=== PATIENT | female | born 1985 | race Caucasian/White ===

== ENCOUNTER 2016-06-24 13:51 | Emergency (ER) | payer BC ==
[2016-06-24 15:31] VITALS: RESP 18; O2SAT 99
[2016-06-24] MEDS ORDERED: Sodium Chloride 0.9% 1,000 ML IV ONE (15:40)
[2016-06-24] MEDS ORDERED: Sodium Chloride 0.9% 1,000 ML ONE (16:00)
[2016-06-24 16:08] LABS: BASO # 0.1 K/uL (0.0-0.2); EOS % 0.4 % (0.0-4.0); HEMATOCRIT 32.3 % (34.0-47.0); LYMPH # 2.1 K/uL (1.0-4.3); LYMPH % 34.6 % (20.0-40.0); MEAN CELL VOLUME 69.3 fL (81.0-99.0); MEAN CORPUSCULAR HEMOGLOBIN 20.9 pg (27.0-31.0); MEAN CORPUSCULAR HGB CONC 30.1 g/dL (33.0-37.0); MONO # 0.6 K/uL (0.0-0.8); MONO % 9.1 % (0.0-10.0); RED CELL DISTRIBUTION WIDTH 16.5 % (11.5-14.5); WHITE BLOOD COUNT 6.2 K/uL (4.8-10.8)
[2016-06-24 16:15] LABS: RBC URINE < 1 /hpf (0-3); URINE BACTERIA RARE (<OCC); URINE BILIRUBIN NEGATIVE (NEGATIVE); URINE BLOOD NEGATIVE (NEGATIVE); URINE COLOR Yellow (YELLOW); URINE GLUCOSE (UA) NORMAL (Normal); URINE KETONE NEGATIVE (NEGATIVE); URINE PROTEIN NEGATIVE (NEGATIVE); URINE UROBILINOGEN NORMAL mg/dL (0.2-1.0); WBC URINE 3 /hpf (0-5)
[2016-06-24 16:18] LABS: URINE LEUKOCYTE ESTERASE TRACE Leu/uL (Negative)
[2016-06-24 16:20] LABS: CHLORIDE 98 mmol/L (98-107); SODIUM 138 mmol/L (132-148)
[2016-06-24 16:21] LABS: POTASSIUM 3.9 mmol/L (3.6-5.2)
[2016-06-24 16:22] LABS: GFR AFRICAN-AMERICAN > 60
[2016-06-24 16:23] LABS: ALB/GLOB RATIO 1.3 (1.0-2.1); ALKALINE PHOSPHATASE 73 U/L (38-126); ALT/SGPT 16 U/L (9-52); AST/SGOT 20 U/L (14-36); BILIRUBIN,TOTAL 0.5 mg/dL (0.2-1.3); BLOOD UREA NITROGEN 5 mg/dL (7-17); CALCIUM 8.9 mg/dl (8.6-10.4); CARBON DIOXIDE 25 mmol/L (22-30); GLUCOSE,RANDOM 93 mg/dL (65-105); TOTAL PROTEIN 7.9 g/dL (6.3-8.3)
[2016-06-24 16:24] LABS: MAGNESIUM 2.3 mg/dL (1.6-2.3)
[2016-06-24 19:31] VITALS: BP 106/65; PULSE 61; TEMP 98.5
--- NOTE | 2016-06-24 21:11 | C.PDOC ---
Time Seen by Provider: 06/24/16 15:26 Chief Complaint (Nursing): Abdominal Pain History Per: Patient, Family Onset/Duration Of Symptoms: Days (about 1 week) Current Symptoms Are (Timing): Still Present Severity: Moderate Location Of Pain/Discomfort: Diffuse, Epigastric Quality Of Discomfort: Unable To Describe Associated Symptoms: Nausea, Vomiting, Constipation Exacerbating Factors: Food Alleviating Factors: None Additional History Per: Prior Records Past Medical History Reviewed: Historical Data, Nursing Documentation, Vital Signs Vital Signs: Last Vital Signs Temp 98.5 F 06/24/16 19:30 Pulse 61 06/24/16 19:30 Resp 18 06/24/16 19:30 BP 106/65 06/24/16 19:30 Pulse Ox 99 06/24/16 19:30 - Medical History PMH: No Chronic Diseases Surgical History: No Surg Hx Family History: States: Unknown Family Hx - Social History Hx Tobacco Use: No Hx Alcohol Use: No Hx Substance Use: No - Immunization History Hx Tetanus Toxoid Vaccination: No Hx Influenza Vaccination: No Hx Pneumococcal Vaccination: No Review Of Systems Except As Marked, All Systems Reviewed And Found Negative. Constitutional: Negative for: Fever, Weakness Cardiovascular: Negative for: Chest Pain Respiratory: Negative for: Hemoptysis Gastrointestinal: Positive for: Nausea, Vomiting, Abdominal Pain, Constipation. Negative for: Melena, Hematochezia, Hematemesis Genitourinary: Negative for: Dysuria Musculoskeletal: Negative for: Neck Pain, Back Pain Skin: Negative for: Rash Neurological: Negative for: Weakness, Numbness, Seizures, Altered Mental Status Physical Exam - Physical Exam Appears: Non-toxic, No Acute Distress Skin: Normal Color, Warm, Dry, No Rash Head: Atraumatic, Normacephalic Eye(s): bilateral: Normal Inspection, PERRL, EOMI Oral Mucosa: Moist Neck: Normal ROM, Supple Cardiovascular: Rhythm Regular Respiratory: Normal Breath Sounds, No Accessory Muscle Use Gastrointestinal/Abdominal: Soft, Tenderness (nonspecific), No Distention, No Guarding, No Rebound Back: No CVA Tenderness Extremity: Normal ROM, No Pedal Edema, No Calf Tenderness Neurological/Psych: Oriented x3, Normal Motor, Normal Sensation ED Course And Treatment - Laboratory Results Result Diagrams: 06/24/16 16:01 06/24/16 16:01 Interpretation Of Abnormal: Mild anemia. Urine POC: Negative O2 Sat by Pulse Oximetry: 99 Pulse Ox Interpretation: Normal - Radiology CXR: Interpreted by Me, Viewed By Me CXR Interpretation: Yes: No Acute Disease - Other Rad Obstructive series Interpretation: Constipation. No signs of obstruction. Progress Note: Pt had a large BM in the ED with much relief of her symptoms. Reassessment Condition: Improved Progress - Interventions Interventions:: Observation, Intravenous fluid - Medications Administered Intravenous: Antiemetic, H-2 marsha - Data Reviewed Data Reviewed: Lab, Diagnostic imaging, Old records - Patient Status Patient status: Mostly improved - Continuity of Care Discussed patient case with:: Patient, Family-HIPPA compliant, ED Nurse - Patient Plan Patient Plan: Discharge, F/U with PCP Disposition Counseled Patient/Family Regarding: Studies Performed, Diagnosis, Need For Followup, Rx Given - Disposition Referrals: Ant Kelsey [Medical Doctor] - Disposition: HOME/ ROUTINE Disposition Time: 21:13 Condition: IMPROVED Additional Instructions: Drink plenty of fluids. Follow up with your doctor for further evaluation and treatment. Return to the ER if you develop fever, vomiting, worsening of symptoms or if you have any other concerns. Prescriptions: Pantoprazole Sodium [Protonix] 40 mg PO DAILY #14 ect Metoclopramide [Reglan] 5 mg PO TID PRN #15 tab PRN Reason: Nausea/Vomiting Instructions: Constipation (ED), High Fiber Diet (ED) Print Language: BRAZILIAN - Clinical Impression Clinical Impression: Abdominal pain, Nausea and vomiting, Constipation
--- NOTE | 2016-06-25 08:51 | RAD ---
Abdomen four views History: Vomiting. Abdominal pain. Comparison: None available. Findings: Mild venous congestion. Heart size within normal limits. Moderate fecal retention in the colon. No evidence of gross obstruction. Impression: Moderate fecal retention in the colon.
== END 2016-06-24 21:23 | disposition home or self-care (01) ==
LOC: C.ER 13:51
DX: K59.00 Constipation, unspecified (principal)
CPT/HCPCS: 74022; 80053; 81001; 83690; 83735; 84100; 84703; 85025; 96361; 96374; 96375; 99285; J2405; J7040